=== PATIENT | male | born 1950 | race Caucasian/White ===

== ENCOUNTER 2018-03-08 16:39 | Emergency (ER) | payer MEDICARE, MEDICAID ==
[~2018-03-08] VITALS: Ht 177.8 cm; Wt 72.9 kg
[2018-03-08 16:44] VITALS: BP 146/74
== END 2018-03-08 19:07 | disposition home or self-care (01) ==
LOC: ER 17:50
DX: K64.4 Residual hemorrhoidal skin tags (principal); K56.41 Fecal impaction; F79 Unspecified intellectual disabilities
CPT/HCPCS: 99282

== ENCOUNTER 2020-07-08 19:54 | Emergency (ER) | payer MEDICAID, MEDICARE ==
[~2020-07-08] VITALS: Ht 172.7 cm; Wt 65.0 kg
[2020-07-08 19:55] VITALS: BP 116/71
[2020-07-08] MEDS ORDERED: IBUPROFEN 600MG TABLET PO STA (20:11)
== END 2020-07-09 01:36 | disposition home or self-care (01) ==
LOC: ER 19:54
DX: U07.1 COVID-19 (principal); J18.9 Pneumonia, unspecified organism; R03.0 Elevated blood-pressure reading, without diagnosis of hypertension; R62.50 Unspecified lack of expected normal physiological development in childhood
CPT/HCPCS: 71045; 87635; 93005; 99285